=== PATIENT | female | born 1940 | race Caucasian/White ===

== ENCOUNTER 2023-04-20 08:46 | Outpatient (CLI) | payer MEDICARE, SELFPAY ==
[2023-04-20] MEDS: SODIUM CHLORIDE 0.9 % (FLUSH) 10 ML SYRINGE IVF (10:30)
[2023-04-20] MEDS: REGADENOSON 0.4 MG/5 ML SYRINGE IVP (10:30)
[2023-04-20 11:00] VITALS: BP 135/87; PULSE 105
--- NOTE | 2023-04-20 11:47 | P.STN_ITS ---
Stress Test Note Date Date of test: 04/20/23 Providers Primary care provider: Giovani Krause Stress test physician: Gage Gifford Stress Test Note Stress test ordered: Lexiscan Indication for test: Syncope Stress test medicine: Lexiscan Results discussion: Patient is a very nice 82-year-old female presents for the above test, after review of the risks benefits and side effects of this she would like to proceed. Cardiac stress test medical history form is reviewed entirely. Pretest EKG shows normal sinus rhythm, with a ventricular rate of 77 and a blood pressure 147 on 83. T-wave inversion is noted inferiorly in lead 3. Standard Lexiscan protocol is done over 5 minute. , her maximum was 120 which is 100% of the maximum. Review of the tracing did not show any changes, at least acute, pre- existing changes remained stable here there are no dysrhythmia. No anginal equivalents and no complaints noted. Impression: Negative electrographic portion of Lexiscan Follow up suggested: Await nuclear images these will be read by nuclear Medicine, clinical correlation with these will be needed. Patient did well and there were no complications. Left this testing facility in excellent condition
== END 2023-04-20 08:47 | disposition home or self-care (01) ==
LOC: STRESS 08:48
PROVIDERS: PCP Family Medicine; Visit Provider Family Medicine
DX: R55 Syncope and collapse (principal); R07.9 Chest pain, unspecified
CPT/HCPCS: 78452; 93016; 93017; A9500; J2785